=== PATIENT | female | born 2000 | race Caucasian/White ===

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

== ENCOUNTER 2019-06-04 00:45 | Emergency (ER) | payer OTHER ==
[~2019-06-04] VITALS: Ht 152.4 cm; Wt 68.2 kg
[2019-06-04] MEDS ORDERED: ALBU8HFA IH (00:55)
[2019-06-04] MEDS ORDERED: IPRATROPIUM BROMIDE 0.5 MG/2.5 ML NEB SOLUTION NEB ONE (01:00)
[2019-06-04] MEDS ORDERED: ALBUTEROL SULFATE 2.5 MG/0.5 ML NEB SOLUTION NEB ONE (01:00)
[2019-06-04] MEDS ORDERED: 0.9% SODIUM CHLORIDE 5 ML NEB SOLUTION NEB ONE (01:26)
[2019-06-04] MEDS ORDERED: ACETAMINOPHEN/CODEINE 300-30 MG TABLET PO ONE (03:45)
[2019-06-04] MEDS ORDERED: GuaiFENesin/D-METHORPHAN [SUGAR-FREE] 200-20MG/10 ML SYRUP UDCUP PO ONE (03:45)
[2019-06-04] MEDS ORDERED: ONDANSETRON HCL 4 MG TABLET PO ONE (03:45)
[2019-06-04 04:30] VITALS: BP 112/65
[2019-06-04 04:31] LABS: APPEARANCE,URINE CLEAR (CLEAR); BILIRUBIN,URINE NEGATIVE (NEGATIVE); GLUCOSE, URINE (UA) NEGATIVE (NEGATIVE); KETONES,URINE 15 mg/dL (NEGATIVE); LEUKOCYTE ESTERASE ,URINE NEGATIVE (NEGATIVE); NITRATE,URINE NEGATIVE (NEGATIVE); OCCULT BLOOD,URINE NEGATIVE (NEGATIVE); PROTEIN,URINE NEGATIVE (NEGATIVE); UROBILINOGEN,URINE 0.2 mg/dL (<=1.0)
== END 2019-06-04 04:50 | disposition home or self-care (01) ==
LOC: EMS 00:46
DX: J45.901 Unspecified asthma with (acute) exacerbation (principal); N94.6 Dysmenorrhea, unspecified; N92.1 Excessive and frequent menstruation with irregular cycle; J06.9 Acute upper respiratory infection, unspecified; F31.9 Bipolar disorder, unspecified; F20.9 Schizophrenia, unspecified; F41.9 Anxiety disorder, unspecified; F12.90 Cannabis use, unspecified, uncomplicated; Z79.899 Other long term (current) drug therapy
CPT/HCPCS: 81003; 84703; 94640; 99284; Q0162

== ENCOUNTER 2021-11-20 18:03 | Inpatient (IN) | payer MEDICAID, OTHER ==
[~2021-11-20] VITALS: Ht 152.4 cm; Wt 87.1 kg
[~2021-11-20 18:03] MED LIST changes: +ALBU8HFA IH; -QUET25TA PO
[2021-11-20 19:58] LABS: BASOPHILS % (AUTO) 0.3 % (0.0-2.0); EOSINOPHILS % (AUTO) 1.4 % (1.0-6.0); HEMATOCRIT 39.9 % (36-46); HEMOGLOBIN 13.6 g/dL (12.0-16.0); LYMPHOCYTES % (AUTO) 21.1 % (22.0-44.0); MEAN CORPUSCULAR HEMOGLOBIN 28.5 pg (26.0-34.0); MEAN CORPUSCULAR HGB CONC 34.1 G/dL (31.0-37.0); MEAN CORPUSCULAR VOLUME 84 fL (80-100); MONOCYTES # (AUTO) 0.5 K/uL (0.1-1.0); MONOCYTES % (AUTO) 5.2 % (2.0-9.0); NEUTROPHILS # (AUTO) 6.7 K/uL (1.8-7.7); PLATELET COUNT (AUTO) 195 K/uL (150-450); RED BLOOD CELL COUNT(AUTO) 4.77 MIL/uL (4.00-5.20); RED CELL DISTRIBUTION WIDTH 14.1 % (11.5-14.5)
[2021-11-20 20:07] LABS: ANION GAP 12 mmol/L (8-16); CARBON DIOXIDE 24 mmol/L (22-29); CHLORIDE 104 mmol/L (98-107); CREATININE 0.61 mg/dL (0.60-1.30); GLUCOSE,RANDOM 87 mg/dL (70-110); POTASSIUM 3.9 mmol/L (3.5-5.1); SODIUM SERUM 140 mmol/L (136-145); UREA NITROGEN, BLOOD 12 mg/dL (7-18)
[2021-11-20 20:13] LABS: ALANINE AMINOTRANSFERASE 27 U/L (12-78); ALKALINE PHOSPHATASE 83 U/L (46-116); ASPARTATE AMINOTRANSFERASE 16 U/L (15-37); BILIRUBIN,TOTAL 0.3 mg/dL (0.1-1.0); CALCIUM, TOTAL 8.8 mg/dL (8.8-10.5); TOTAL PROTEIN, SERUM 7.2 g/dL (6.4-8.2)
[2021-11-20 20:14] LABS: GLOMERULAR FILTR. RATE CALC > 60 mL/min (>60)
[2021-11-20 20:40] LABS: AMPHET/METH SCREEN,URINE NEGATIVE (NEGATIVE); BARBITURATE SCREEN, URINE NEGATIVE (NEGATIVE); BENZODIAZEPINES SCREEN,URINE NEGATIVE (NEGATIVE); CANNABINOID SCREEN,URINE POSITIVE (NEGATIVE); COCAINE SCREEN,URINE POSITIVE (NEGATIVE); METHADONE SCREEN, URINE NEGATIVE (NEGATIVE); OPIATE SCREEN,URINE NEGATIVE (NEGATIVE); PHENCYCLIDINE SCREEN,URINE NEGATIVE (NEGATIVE)
[2021-11-20 20:58] LABS: COVID AG,FIA SOURCE NASAL SWAB
[2021-11-20] MEDS ORDERED: HALOPERIDOL 5 MG TABLET PO PRN (22:00)
[2021-11-20] MEDS ORDERED: ZOLPIDEM TARTRATE 10 MG TABLET PO PRN (22:00)
[2021-11-21] MEDS: LORazepam 2 MG TABLET PO PRN ×2 (03:32→18:54)
[2021-11-21 07:57] LABS: APPEARANCE,URINE CLEAR (CLEAR); BILIRUBIN,URINE NEGATIVE (NEGATIVE); GLUCOSE, URINE (UA) NEGATIVE (NEGATIVE); KETONES,URINE NEGATIVE (NEGATIVE); LEUKOCYTE ESTERASE ,URINE NEGATIVE (NEGATIVE); NITRATE,URINE NEGATIVE (NEGATIVE); OCCULT BLOOD,URINE NEGATIVE (NEGATIVE); PROTEIN,URINE NEGATIVE (NEGATIVE); SPECIFIC GRAVITIY, URINE 1.022 (1.003-1.030); UROBILINOGEN,URINE <=1.0 mg/dL (<=1.0)
[2021-11-21 12:16] VITALS: BP 139/61
[2021-11-21] MEDS ORDERED: PNEUMOCOCCAL VACCINE POLYVALENT 0.5 ML VIAL [PPSV23] IM. ONE (12:30)
[2021-11-21] MEDS: LITHIUM CARBONATE 300 MG CAPSULE PO SCH (17:00)
[2021-11-21] MEDS ORDERED: MAG HYDROX/AL HYDROX/SIMETH ES 30 ML SUSPENSION UDCUP PO PRN (18:30)
[2021-11-21] MEDS ORDERED: BENZOCAINE/MENTHOL LOZENGE PO PRN (18:30)
[2021-11-21] MEDS ORDERED: IBUPROFEN 600 MG TABLET PO PRN (18:30)
[2021-11-21] MEDS ORDERED: ONDANSETRON HCL 4 MG TABLET PO PRN (18:30)
[2021-11-21] MEDS ORDERED: ACETAMINOPHEN 325 MG TABLET PO PRN (18:30)
[2021-11-21] MEDS ORDERED: PETROLATUM,WHITE 28 GM JELLY TP PRN (18:30)
[2021-11-21] MEDS ORDERED: OMEPRAZOLE 20 MG CAPSULE PO PRN (18:30)
[2021-11-21] MEDS ORDERED: CloNIDine HCL 0.1 MG TABLET PO PRN (18:30)
[2021-11-21] MEDS ORDERED: ALBUTEROL SULFATE HFA 90 MCG/PUFF 8 GM INHALER IH PRN (18:30)
[2021-11-21] MEDS ORDERED: MAGNESIUM HYDROXIDE SUSPENSION 30 ML UDCUP PO PRN (18:30)
[2021-11-21] MEDS ORDERED: DOCUSATE SODIUM 100 MG CAPSULE PO PRN (18:30)
[2021-11-21] MEDS ORDERED: LOPERAMIDE HCL 2 MG CAPSULE PO PRN (18:30)
[2021-11-21] MEDS ORDERED: BACITRACIN 28 GM OINTMENT TP PRN (18:30)
[2021-11-21 20:15] VITALS: BP 127/66
[2021-11-21] MEDS: DIVALPROEX SODIUM 500 MG DR TABLET PO SCH (20:36)
[2021-11-22 08:27] VITALS: BP 105/61
[2021-11-22] MEDS: DIVALPROEX SODIUM 500 MG DR TABLET PO SCH ×2 (09:08→20:31)
[2021-11-22] MEDS: LITHIUM CARBONATE 300 MG CAPSULE PO SCH ×2 (09:08→16:33)
[2021-11-22] MEDS: LORazepam 2 MG TABLET PO PRN ×2 (12:45→16:59)
[2021-11-22 17:37] VITALS: BP 123/74
[2021-11-22 21:10] VITALS: BP 108/84
[2021-11-23] MEDS: LITHIUM CARBONATE 300 MG CAPSULE PO SCH ×2 (08:38→16:07)
[2021-11-23] MEDS: DIVALPROEX SODIUM 500 MG DR TABLET PO SCH (08:38)
[2021-11-23 08:49] VITALS: BP 102/62
[2021-11-23] MEDS: LORazepam 2 MG TABLET PO PRN ×2 (11:08→15:43)
== END 2021-11-23 18:35 | disposition home or self-care (01) | DRG 753 ==
LOC: EMS 18:03 → B2S 11-21 10:19
PROVIDERS: ADMIT Psychiatry & Neurology Psychiatry; ATTEND Psychiatry & Neurology Psychiatry
DX: F31.9 Bipolar disorder, unspecified (principal); R45.851 Suicidal ideations; F12.90 Cannabis use, unspecified, uncomplicated; Z20.822 Contact with and (suspected) exposure to COVID-19; F14.90 Cocaine use, unspecified, uncomplicated; F20.9 Schizophrenia, unspecified; F41.9 Anxiety disorder, unspecified; J45.909 Unspecified asthma, uncomplicated; S51.819A Laceration without foreign body of unspecified forearm, initial encounter; W18.39XA Other fall on same level, initial encounter; Z72.0 Tobacco use; Z71.6 Tobacco abuse counseling; Y93.89 Activity, other specified; Y92.89 Other specified places as the place of occurrence of the external cause; Y99.8 Other external cause status
CPT/HCPCS: 80053; 81003; 84702; 85025; 99285; G0480